=== PATIENT | female | born 1990 | race Caucasian/White ===

== ENCOUNTER 2016-12-11 09:38 | Emergency (ER) | payer MEDICAID, OTHER ==
[2016-12-11 10:17] VITALS: BP 111/83
--- NOTE | 2016-12-11 12:09 | RAD ---
CLINICAL HISTORY: Back pain, hematuria, dysuria COMPARISON: October 23, 2016 TECHNIQUE: Multiple contiguous axial CT scans were obtained of the abdomen and pelvis, without intravenous contrast enhancement. Coronal and sagittal multiplanar reformations are submitted for review. Oral contrast was not administered. FINDINGS: The study is limited by the lack of intravenous contrast. This limits evaluation of the solid organs and vasculature. LUNG BASES: The lung bases are clear. LIVER: The liver is normal in shape, size, contour, and attenuation. BILE DUCTS: There is no intrahepatic or extrahepatic biliary dilatation. GALLBLADDER: The gallbladder is normal, without pericholecystic inflammatory change. PANCREAS: The pancreas is normal, without mass or ductal dilatation. SPLEEN: Normal in size and appearance. UPPER GI TRACT: Evaluation of the gastrointestinal tract is limited by incomplete gastric distention. The upper GI tract is unremarkable. SMALL BOWEL AND MESENTERY: The small bowel is normal in contour, course, and caliber. There is no obstruction or dilatation. COLON: The colon is normal in contour, course, caliber. There is no pericolonic inflammatory change. ADRENALS: Normal bilaterally. KIDNEYS: There are punctate renal calyceal stones bilaterally. There is no hydronephrosis. BLADDER: The bladder is smooth in contour. PELVIC ORGANS: The uterus and adnexa are grossly normal for technique. AORTA: The aorta is normal. IVC: Unremarkable LYMPH NODES: There is no lymphadenopathy by size criteria. ABDOMINAL WALL: There is no evidence for abdominal wall hernia. BONES AND SOFT TISSUES: Unremarkable OTHER: None IMPRESSION: PUNCTATE BILATERAL RENAL CALYCEAL STONES, WITHOUT HYDRONEPHROSIS
--- NOTE | 2016-12-11 14:57 | UC ---
gene Rolon Timothy, scribed for Yuki Tovar DO on 12/11/16 at 1128 . Complaint Female HPI - HPI Summary HPI Summary: Padmini Dyson is a 26 yo female presenting to [facility] with URI including cough, nasal congestion, and sore throat, for the past month, and diarrhea 2 weeks ago , with vomiting 3 days ago. She has had 7/10 left back pain radiating to the groin for a week, and pain in the left hip for 3 days, radiating to the front of her body. She also has seen blood with clots in her urine, with an increase in frequency. She denies any other Sx. She has a Hx of kidney stones, asthma, and cervical cancer. - History Of Current Complaint Chief Complaint: UC Stated Complaint: STOMACH PAIN Time Seen by Provider: 12/11/16 11:23 Hx Obtained From: Patient Hx Last Menstrual Period: 11/18/16 Onset/Duration: Gradual Onset, Lasting Days, Still Present Timing: Constant Severity Initially: Moderate Severity Currently: Moderate Pain Intensity: 7 Pain Scale Used: 0-10 Numeric Radiates to: groin/back Character: Sharp Aggravating Factor(s): Nothing Alleviating Factor(s): Nothing Associated Signs And Symptoms: Positive: Back Pain, Vomiting(# Of Episodes =). Negative: Fever, Vaginal Bleeding/Discharge, Vaginal Discharge, Nausea, Genital Swelling - Allergies/Home Medications Allergies/Adverse Reactions: Allergies Allergy/AdvReac Type Severity Reaction Status Date / Time Cyclobenzaprine Allergy Severe SEVERE Verified 12/11/16 10:07 [From Flexeril] ANXIETY Amoxicillin Allergy Rash Verified 12/11/16 10:07 Sulfa Drugs Allergy Rash Verified 12/11/16 10:07 Home Medications: Home Medications Saline NASAL SPRAY 0.65%* [Sodium Chloride 0.65% Nasal [place]*] 1 spray BOTH NARES Q4H PRN 12/11/16 [History Confirmed 12/11/16] guaiFENesin/CODIEN 100MG-10MG* [Robitussin AC 100Mg-10Mg*] 5 ml PO Q4H PRN 12/11 [History Confirmed 12/11/16] PMH/Surg Hx/FS Hx/Imm Hx - Additional Past Medical History Additional PMH: endometriosis Endocrine History Of: Denies: Diabetes, Thyroid Disease Cardiovascular History Of: Denies: Cardiac Disorders, Hypertension, Pacemaker/ICD, Myocardial Infarction , Congestive Heart Failure, Atrial Fibrillation, Deep Vein Thrombosis, Bleeding Disorders Respiratory History Of: Reports: Asthma Denies: COPD, Bronchitis, Pneumonia, Pulmonary Embolism GI/ History Of: Reports: Kidney Stones Denies: Gastroesophageal Reflux, Ulcer, Gastrointestinal Bleed, Gall Bladder Disease, Diverticulitis, Renal Disease - KIDNEY STONES, Urosepsis Neurological History Of: Denies: TIA, CVA, Dementia, Seizures, Migraine - She states that she has had this, but she is on no medications for this. Psychological History Of: Denies: Anxiety, Depression, Bipolar Disorder, Schizophrenia, Post Traumatic Stress Disorder Cancer History Of: Reports: Cervical Cancer Denies: Lung Cancer, Colorectal Cancer, Breast Cancer, Prostate Cancer Other History Of: Negative For: HIV, Hepatitis B, Hepatitis C, Anticoagulant Therapy - Surgical History Surgical History: None - Family History Known Family History: Positive: Other - NONCONTRIBUTROY Negative: Cardiac Disease, Hypertension, Diabetes - Social History Alcohol Use: Rare Substance Use Type: None Smoking Status (MU): Never Smoked Tobacco Have You Smoked in the Last Year: No - Immunization History Most Recent Influenza Vaccination: none Review of Systems Constitutional: Negative Skin: Negative Eyes: Negative ENT: Sore Throat, Nasal Discharge Respiratory: Cough Cardiovascular: Negative Gastrointestinal: Vomiting, Other - nausea, left flank pain Genitourinary: Hematuria, Frequency Motor: Negative Neurovascular: Negative Neurological: Negative Psychological: Negative All Other Systems Reviewed And Are Negative: Yes Physical Exam Triage Information Reviewed: Yes Appearance: Well-Appearing, No Pain Distress, Well-Nourished, Other: Vital Signs: Initial Vital Signs Temp 99.2 F 12/11/16 10:10 Pulse 96 12/11/16 10:10 Resp 16 12/11/16 10:10 BP 111/83 12/11/16 10:10 Pulse Ox 98 12/11/16 10:10 Vital Signs Reviewed: Yes Eyes: Positive: Conjunctiva Clear. Negative: Conjunctiva Inflamed, Discharge ENT: Positive: Hearing grossly normal, Pharynx normal, Nasal congestion, Nasal drainage, TMs normal, Other: - left maxillary tenderness to palpation. Negative : Tonsillar swelling, Muffled/hoarse voice Dental Exam: Normal Neck: Positive: Supple, Nontender Respiratory: Positive: Chest non-tender, Lungs clear, Normal breath sounds, No respiratory distress, No accessory muscle use Cardiovascular: Positive: RRR, No Murmur Abdomen Description: Positive: No Organomegaly, Soft, CVA Tenderness (L). Negative: Nontender - LLQ and suprapubic, mild in LUQ, Distended, Guarding Bowel Sounds: Positive: Present Musculoskeletal Exam: Normal Neurological: Positive: Alert, Muscle Tone Normal Psychological Exam: Normal Psychological: Positive: Age Appropriate Behavior Skin Exam: Normal Diagnostics - Radiology CT A/P Xray Interpretation: Positive (See Comments) - IMPRESSION: PUNCTATE BILATERAL RENAL CALYCEAL STONES, WITHOUT HYDRONEPHROSIS Radiology Interpretation Completed By: Radiologist Re-Evaluation - Re-Evaluation First Eval Re-Evaluation Time: 12:38 Change: Unchanged Comment: Pt was informed of results of CT. Second Eval Re-Evaluation Time: 13:20 Change: Unchanged Comment: Informed Pt that we are still awaiting consult with Dr. Perez's office Third Eval Re-Evaluation Time: 13:30 Change: Unchanged Comment: Pt was given further instructions for Tx. Complaint Female Dx - Course Course Of Treatment: Padmini Dyson is a 26 yo female presenting to [facility] with left flank and groin pain for the past 3 days, blood in her urine, and a Hx of kidney stones. After review of her UA and CT A/P, she will be discharged with renal calculi. UROLOGY WAS CONTACTED. ONCALL, DR MOSQUERA, WAS IN O.R. SO DR PEREZ KINDLY TOOK A LOOK AT THE CT AND SAID NOT MUCH NEEDS TO BE DONE. STILL AWAITING CALL BACK FROM DR MOSQUERA. I LEFT MY CELL NUMBER WITH OR NURSE. D/W DR MOSQUERA AT [phone]. HE SAID PT CAN CALL TO SET UP AND ELECTIVE APPOINTMENT TO ESTABLISH WITH UROLOGY GIVEN RECURRENT STONES. CONTACTED PT AND RELAYED INFO. UA results: color: pale, yellow. character: clear. odor: none. Bilirubin: negative. urobilinogen: normal. ketones: negative. ascorbic acid: negative. glucose: negative. protein: negative. Blood: +. pH: 5. Nitrite: negative. Leukocytes: normal. Specific gravity: 1.005 - Differential Dx/Diagnosis Provider Diagnoses: Bilateral renal calculi without hydronephrosis or obstruction - Physician Notifications Discussed Patient Care With: [email or web address] - Lennox Marcos - nurse (Urology) - will have MD return call Discharge - Discharge Plan Condition: Stable Disposition: HOME Prescriptions: Ciprofloxacin HCl [Cipro] 500 mg PO BID #14 tab Patient Education Materials: Kidney Stones (ED), Urinary Tract Infection in Women (ED), Sinusitis (ED) Referrals: Non Staff,Doctor [Primary Care Provider] - 2 Days Additional Instructions: TRY USING THE NETTI POT IN THE MORNINGS DISCUSSED. YOU MUST ALWAYS USE CLEAN WATER. REMEMBER, POSTURE IS AN IMPORTANT FACTOR IN SINUS DRAINAGE. MOVE YOUR NECK, BREATHE. CIPROFLOXACIN: You have been given a new antibacterial agent, ciprofloxacin (Cipro). This medicine is not related to the penicillins, sulfas, cephalosporins, or tetracyclines. It is often given to patients who are allergic to these drugs. It has been chosen for you either because other drugs are not appropriate, or because of the nature of your problem. Cipro should not be taken with antacids, as these can decrease its effectiveness. It can be taken without regard to meals. CIPRO SHOULD NOT BE TAKEN BY CHILDREN, NURSING WOMEN, OR WOMEN. Although Cipro is usually well-tolerated, common side effects can include nausea and diarrhea. Contact your doctor if you experience any unusual symptoms while on this medication, such as joint pain or swelling, shortness of breath, wheezing, faintness, or hives. ANY TIME YOU TAKE AN ANTIBIOTIC, IT IS IMPORTANT TO REPLENISH THE BODY'S BALANCE OF "GOOD" BACTERIA BY EATING HIGH QUALITY CULTURED FOOD SUCH YOGURT, SAURKRAUT OR CELSO CHI AND/OR TAKING A PROBIOTIC SUPPLEMENT. WE HAVE A CALL OUT TO UROLOGY TO DISCUSS YOUR CASE. YOU WOULD LIKE TO LEAVE NOW AND HAVE US CALL YOU AND UP DATE YOU WITH REGARD TO THE PLAN. PLEASE BE AVAILABLE BY PHONE FOR US TO REACH YOU. Follow up with your primary care physician within 2 days regarding your visit to urgent care. Return to urgent care with any new or recurring symptoms. The documentation as recorded by the gene marina Timothy accurately reflects the service I personally performed and the decisions made by , Yuki Tovar DO.
== END 2016-12-11 13:50 | disposition home or self-care (01) ==
LOC: UCEAST 09:38
DX: N20.0 Calculus of kidney (principal); Z87.442 Personal history of urinary calculi; R11.10 Vomiting, unspecified; Z32.02 Encounter for pregnancy test, result negative; Z88.0 Allergy status to penicillin; Z88.2 Allergy status to sulfonamides; Z88.8 Allergy status to other drugs, medicaments and biological substances
CPT/HCPCS: 74176; 81002; 81025; 99212; G0463

== ENCOUNTER 2017-04-05 09:51 | Emergency (ER) | payer OTHER ==
[2017-04-05 10:10] VITALS: BP 132/91
--- NOTE | 2017-04-05 11:02 | UC ---
Lower Extremity/Ankle HPI - HPI Summary HPI Summary: complaint of right ankle pain missed a step turned right ankle outward and fell forward and hit the top of her foot an a dresser unable to ambulate after injury constant aching pain is in lateral side of ankle, top of foot and radiates into her front of lower leg used ice and elevated with some relief hx of bone chip in her ankle and many sprained ankles in the past hasn't taken taken any medication for pain - History of Current Complaint Chief Complaint: UCLowerExtremity Stated Complaint: ANKLE INJURY Time Seen by Provider: 04/05/17 10:56 Hx Obtained From: Patient Hx Last Menstrual Period: March 18-2016, spotted - Allergies/Home Medications Allergies/Adverse Reactions: Allergies Allergy/AdvReac Type Severity Reaction Status Date / Time Cyclobenzaprine Allergy Severe SEVERE Verified 12/11/16 10:07 [From Flexeril] ANXIETY Amoxicillin Allergy Rash Verified 12/11/16 10:07 Sulfa Drugs Allergy Rash Verified 12/11/16 10:07 PMH/Surg Hx/FS Hx/Imm Hx Previously Healthy: Yes Endocrine History Of: Denies: Diabetes, Thyroid Disease Cardiovascular History Of: Denies: Cardiac Disorders, Hypertension, Pacemaker/ICD, Myocardial Infarction , Congestive Heart Failure, Atrial Fibrillation, Deep Vein Thrombosis, Bleeding Disorders Respiratory History Of: Reports: Asthma Denies: COPD, Bronchitis, Pneumonia, Pulmonary Embolism GI/ History Of: Reports: Kidney Stones Denies: Gastroesophageal Reflux, Ulcer, Gastrointestinal Bleed, Gall Bladder Disease, Diverticulitis, Renal Disease - KIDNEY STONES, Urosepsis Neurological History Of: Denies: TIA, CVA, Dementia, Seizures, Migraine - She states that she has had this, but she is on no medications for this. Psychological History Of: Denies: Anxiety, Depression, Bipolar Disorder, Schizophrenia, Post Traumatic Stress Disorder Cancer History Of: Reports: Cervical Cancer Denies: Lung Cancer, Colorectal Cancer, Breast Cancer, Prostate Cancer Other History Of: Negative For: HIV, Hepatitis B, Hepatitis C, Anticoagulant Therapy - Surgical History Surgical History: None - Family History Known Family History: Positive: Other - NONCONTRIBUTROY Negative: Cardiac Disease, Hypertension, Diabetes - Social History Occupation: Employed Full-time Lives: With Family Alcohol Use: Rare Substance Use Type: None Smoking Status (MU): Never Smoked Tobacco Have You Smoked in the Last Year: No - Immunization History Most Recent Influenza Vaccination: none Review of Systems Constitutional: Negative Skin: Negative Eyes: Negative ENT: Negative Respiratory: Negative Cardiovascular: Negative Gastrointestinal: Negative Genitourinary: Negative Motor: Negative Neurovascular: Negative Musculoskeletal: Other: - roght foot and ankle pain Neurological: Negative Psychological: Negative All Other Systems Reviewed And Are Negative: Yes Physical Exam Triage Information Reviewed: Yes Appearance: No Pain Distress, Well-Nourished Vital Signs: Initial Vital Signs Temp 97.0 F 04/05/17 10:00 Pulse 84 04/05/17 10:00 Resp 16 04/05/17 10:00 BP 132/91 04/05/17 10:00 Pulse Ox 98 04/05/17 10:00 Vital Signs Reviewed: Yes Eyes: Positive: Conjunctiva Clear ENT: Positive: Pharynx normal, TMs normal. Negative: Nasal congestion Neck: Positive: No Lymphadenopathy Respiratory: Positive: Lungs clear, Normal breath sounds, No respiratory distress, No accessory muscle use Cardiovascular: Positive: RRR, No Murmur, Pulses Normal Abdomen Description: Positive: Nontender, Soft Bowel Sounds: Positive: Present Musculoskeletal: Positive: Other: - RLE:No bony deformities, tenderness and edema throughtout lateral side of ankle and top of 3rd 4th 5th metatarsals i Full ROM dorsi/plantar flexion, inversion & eversion. Bement test negative. Neurological: Positive: Alert Psychological Exam: Normal Skin Exam: Normal Lower Extremity Course/Dx - Course Course Of Treatment: exam completed. will x-ray d/t hx of "bone chip" in ankle and trauma - Differential Dx/Diagnosis Differential Diagnosis/HQI/PQRI: Fracture (Closed), Sprain, Strain Provider Diagnoses: right ankle sprain Discharge - Discharge Plan Condition: Stable Disposition: HOME Patient Education Materials: Ankle Sprain (ED) Referrals: Non Staff,Doctor [Primary Care Provider] - [facility] [place] [facility] [Outside] Additional Instructions: ANKLE SPRAIN What is an Ankle Sprain? An ankle sprain is a partial or complete tearing of the ligaments that support the ankle joint. Most ankle sprains affect the ligaments on the outside of the joint. X-rays will not show ligament injury and are often not needed for simple sprains. Symptoms Might Include: Pain in your ankle, foot, or lower leg area Bruising and/or Swelling Possible deformity (bones not lined up as usual) Treatment Recommendations: You should prop your foot up above the level of your heart for the first 24 to 48 hours. This helps cut down on the pain and swelling. You should put an ice pack wrapped in a towel on the injured area for 15 to 20 minutes every 2 to 3 hours when you are awake for the first 2 to 3 days. A compression dressing, like a Velcro splint or Sid wrap, will help give support and cut down on swelling. If the wrap is too tight, it may cause numbness, tingling, paleness, or a cool feeling. If this happens, the wrap should be taken off and put back on looser. Crutches should be used if there is any pain when you put your weight on your foot. You usually only need to use crutches for the first few days. If you have a more severe sprain you might need to use them longer. As the pain gets better , try to walk without the crutches a little at a time until you can walk without any pain. When your sprain starts to get better you should start exercising. Sit with your ankle off the ground and move it around in all directions 4 to 6 times a day as long as it is not painful. When you can walk without crutches, slowly start to increase your activity by walking short distances. Remember not to overdo it. It may take 3 to 4 weeks to completely get better, even for a mild sprain. It can take much longer for more severe sprains. More severe sprains will need a splint. You will need to see a healthcare provider again in the next 2 to 3 days. [id number] anti-inflammatory medicine like ibuprofen (Motrin, Advil) or naproxen (Aleve) may help with both the pain and the swelling in your joints. You should not take these medicines if you have a history of bleeding in your stomach. The healthcare provider may give you a prescription for a narcotic pain medicine to ease the pain. Do not drive or do things that need your full attention after taking this medication. Call Your Doctor or Return Here IF: You have a lot more pain or swelling. If the pain is not getting better in 3 days. If you start to have numbness or tingling in your foot or ankle. If the injured area starts to feel cool to the touch or is pale or bluish in color. If you start to have any other symptoms that worry you. Your blood pressure is pre-hypertensive reading. Please contact your primary care provider within 1 day -4 weeks for further evaluation
--- NOTE | 2017-04-05 11:38 | RAD ---
Indication: Posterior RIGHT ankle pain after injury with fall. Comparison: June 02, 2016 MRI and February 07, 2016 radiographs. Technique: AP, mortise, and lateral views RIGHT ankle. Report: Congruent ankle mortise. Negative for fracture or osteochondral lesion. Unremarkable soft tissue contours. IMPRESSION: Negative exam.
== END 2017-04-05 12:03 | disposition home or self-care (01) ==
LOC: UCEAST 09:51
DX: S93.401A Sprain of unspecified ligament of right ankle, initial encounter (principal); X50.1XXA Overexertion from prolonged static or awkward postures, initial encounter; Y93.9 Activity, unspecified; Y99.9 Unspecified external cause status
CPT/HCPCS: 99213; G0463

== ENCOUNTER 2017-04-10 14:46 | Emergency (ER) | payer OTHER ==
[2017-04-10 15:37] VITALS: BP 138/79
--- NOTE | 2017-04-10 16:36 | UC ---
Lower Extremity/Ankle HPI - HPI Summary HPI Summary: Injured ankle a few days ago--had been none weight bearing with crutches-today tried to walk without crutches--increase pain right ankle heard and felt a tearing fell and landed on right hip - History of Current Complaint Chief Complaint: UCLowerExtremity Stated Complaint: RECHECK ANKLE INJURY Time Seen by Provider: 04/10/17 16:28 Hx Obtained From: Patient Hx Last Menstrual Period: 03/19/17 ?: No Onset/Duration: Lasting Days, Still Present, Worse Since - she tried to WB today and fell causing increased and return of pain Severity Initially: Moderate Severity Currently: Severe Pain Intensity: 9 - crying with palpation Pain Scale Used: 0-10 Numeric Aggravating Factor(s): Standing Alleviating Factor(s): Rest, Elevation, Ice, OTC Meds Able to Bear Weight: No - Allergies/Home Medications Allergies/Adverse Reactions: Allergies Allergy/AdvReac Type Severity Reaction Status Date / Time Cyclobenzaprine Allergy Severe SEVERE Verified 12/11/16 10:07 [From Flexeril] ANXIETY Amoxicillin Allergy Rash Verified 12/11/16 10:07 Sulfa Drugs Allergy Rash Verified 12/11/16 10:07 PMH/Surg Hx/FS Hx/Imm Hx Previously Healthy: Yes Other History Of: Negative For: HIV, Hepatitis B, Hepatitis C, Anticoagulant Therapy - Surgical History Surgical History: None - Family History Known Family History: Positive: Other Negative: Cardiac Disease, Hypertension, Diabetes Family History: no cardio vascular issues reported in family lineage - Social History Occupation: Employed Full-time Lives: With Family Alcohol Use: Rare Substance Use Type: None Smoking Status (MU): Never Smoked Tobacco Have You Smoked in the Last Year: No - Immunization History Most Recent Influenza Vaccination: none Review of Systems Constitutional: Negative Skin: Negative Eyes: Negative ENT: Negative Respiratory: Negative Cardiovascular: Negative Gastrointestinal: Negative Genitourinary: Negative Motor: Negative Neurovascular: Negative Musculoskeletal: Arthralgia - right hip and ankle, Myalgia - right hip Neurological: Negative Psychological: Negative All Other Systems Reviewed And Are Negative: Yes Physical Exam Triage Information Reviewed: Yes Appearance: Well-Appearing, Well-Nourished, Pain Distress Vital Signs: Initial Vital Signs Temp 97.8 F 04/10/17 15:32 Pulse 88 04/10/17 15:32 Resp 16 04/10/17 15:32 BP 138/79 04/10/17 15:32 Pulse Ox 99 04/10/17 15:32 Vital Signs Reviewed: Yes Eye Exam: Normal Eyes: Positive: Conjunctiva Clear ENT Exam: Normal ENT: Positive: Normal ENT inspection, Hearing grossly normal. Negative: Nasal congestion, Nasal drainage, Tonsillar swelling, Tonsillar exudate, Trismus, Muffled/hoarse voice Dental Exam: Normal Neck exam: Normal Neck: Positive: Supple, Nontender Respiratory Exam: Normal Respiratory: Positive: Chest non-tender, No respiratory distress, No accessory muscle use Cardiovascular Exam: Normal Cardiovascular: Positive: RRR, Pulses Normal, Brisk Capillary Refill Musculoskeletal Exam: Other Musculoskeletal: Positive: No Edema, Strength Limited @ - right ankle and hip, ROM Limited @ Neurological Exam: Normal Neurological: Positive: Alert, Muscle Tone Normal Psychological Exam: Normal Skin Exam: Normal Diagnostics - Radiology No standard instances Xray Interpretation: No Acute Changes Radiology Interpretation Completed By: Radiologist Lower Extremity Course/Dx - Course Course Of Treatment: crutches, gal, gel, pain med, rice, off work until cleared by ortho, follow with ortho 2 days - Differential Dx/Diagnosis Differential Diagnosis/HQI/PQRI: Contusion, Fracture (Closed), Sprain, Strain Provider Diagnoses: R hip contusion, right ankle sprain Discharge - Discharge Plan Condition: Stable Disposition: HOME Prescriptions: Hydrocodone-Acetaminophen [Hydrocodone/Acetaminophen 5-325 mg] 1 tab PO Q6H PRN #15 tab MDD 4 PRN Reason: Pain Patient Education Materials: Ankle Sprain (ED), Crutch Instructions (ED), Ankle Stirrup Splint (ED), RICE Therapy (ED), Hip Contusion (ED) Forms: *Work Release Referrals: Zeferino Espinoza MD [Medical Doctor] - 2 Days No Primary Care Phys,NOPCP [Primary Care Provider] -
--- NOTE | 2017-04-10 17:09 | RAD ---
INDICATION: Right ankle injury COMPARISON: April 05, 2017 TECHNIQUE: AP, lateral, and oblique views were obtained. FINDINGS: The bony structures, joint spaces, and soft tissues are normal for age. IMPRESSION: NEGATIVE EXAMINATION, UNCHANGED.
--- NOTE | 2017-04-10 17:10 | RAD ---
INDICATION: Right hip pain COMPARISON: None TECHNIQUE: An AP view of the pelvis and AP views of the hip in neutral and abducted position were obtained FINDINGS: Bones: There are no acute bony findings. Joint spaces: The hips articulate normally. The joint spaces are preserved. SI joints/symphysis: The SI joints and symphysis are intact. Other: None IMPRESSION: NEGATIVE EXAMINATION.
[2017-04-10] MEDS ORDERED: HYDROcodone/ACETAMIN 5-325 MG* 1 TAB PO ONE (17:24)
== END 2017-04-10 17:57 | disposition home or self-care (01) ==
LOC: UCEAST 14:46
DX: S70.01XA Contusion of right hip, initial encounter (principal); S93.401A Sprain of unspecified ligament of right ankle, initial encounter; W18.30XA Fall on same level, unspecified, initial encounter
CPT/HCPCS: 99212; G0463

== ENCOUNTER 2017-07-01 11:54 | Emergency (ER) | payer OTHER ==
--- NOTE | 2017-07-01 13:26 | UC ---
Respiratory Complaint HPI - HPI Summary HPI Summary: 2 WEEKS OF SINUS CONGESTION, EARS CLOGGED, PRODUCTIVE COUGH AND RIGHT NECK SWELLING. BLOODY NOSE IN THE MORNINGS PAST 2 DAYS. HAS SUBJECTIVE FEVER. - History of Current Complaint Chief Complaint: UCRespiratory Stated Complaint: SINUS COMPLAINT Time Seen by Provider: 07/01/17 13:24 Hx Obtained From: Patient Hx Last Menstrual Period: 06/03/17 Onset/Duration: Gradual Onset, Lasting Weeks, Still Present Timing: Constant Severity Initially: Moderate Severity Currently: Moderate Pain Intensity: 7 Pain Scale Used: 0-10 Numeric Character: Cough: Productive Aggravating Factors: Nothing Alleviating Factors: Nothing Associated Signs And Symptoms: Positive: Fever, URI, Nasal Congestion, Hoarseness, Sinus Discomfort. Negative: Dyspnea, Chills, Pleuritic Chest Pain, Wheezing, Hemoptysis, Dizziness, Calf Pain, Calf Swelling - Allergies/Home Medications Allergies/Adverse Reactions: Allergies Allergy/AdvReac Type Severity Reaction Status Date / Time Cyclobenzaprine Allergy Severe SEVERE Verified 07/01/17 12:15 [From Flexeril] ANXIETY Amoxicillin Allergy Rash Verified 07/01/17 12:15 Sulfa Drugs Allergy Rash Verified 07/01/17 12:15 PMH/Surg Hx/FS Hx/Imm Hx Respiratory History: Asthma Other History Of: Negative For: HIV, Hepatitis B, Hepatitis C, Anticoagulant Therapy - Surgical History Surgical History: None - Family History Known Family History: Positive: Other Negative: Cardiac Disease, Hypertension, Diabetes Family History: no cardio vascular issues reported in family lineage - Social History Alcohol Use: Rare Substance Use Type: None Smoking Status (MU): Never Smoked Tobacco Have You Smoked in the Last Year: No - Immunization History Most Recent Influenza Vaccination: none Review of Systems Constitutional: Fever ENT: Sore Throat, Ear Ache, Nasal Discharge Respiratory: Cough Cardiovascular: Negative Gastrointestinal: Negative All Other Systems Reviewed And Are Negative: Yes Physical Exam Triage Information Reviewed: Yes Appearance: Well-Appearing, No Pain Distress, Well-Nourished Vital Signs: Initial Vital Signs Temp 97.9 F 07/01/17 12:11 Pulse 67 07/01/17 12:11 Resp 12 07/01/17 12:11 BP 121/82 07/01/17 12:11 Pulse Ox 100 07/01/17 12:11 Vital Signs Reviewed: Yes Eyes: Positive: Conjunctiva Clear ENT: Positive: Hearing grossly normal, Pharynx normal, TMs normal Neck: Positive: Supple, No Lymphadenopathy, Tenderness @ - OVER BELLY OF RIGHT SCM MUSCLE, Other: - RIGHT NECK FULLNESS Respiratory Exam: Normal Cardiovascular Exam: Normal Abdomen Description: Positive: Soft Musculoskeletal: Positive: No Edema Neurological: Positive: Alert Psychological: Positive: Age Appropriate Behavior Skin: Negative: rashes UC Diagnostic Evaluation - Laboratory O2 Sat by Pulse Oximetry: 100 - Radiology Xray Interpretation: No Acute Changes - SOFT TISSUE NECK Radiology Interpretation Completed By: Radiologist Respiratory Course/Dx - Differential Dx/Diagnosis Provider Diagnoses: ACUTE RHINOSINUSITIS Discharge - Discharge Plan Condition: Stable Disposition: HOME Prescriptions: Doxycycline (Monohydrate) [Doxycycline Monohydrate] 1 cap PO BID #20 cap Patient Education Materials: Rhinosinusitis (ED) Referrals: No Primary Care Phys,NOPCP [Primary Care Provider] - Additional Instructions: SOFT TISSUE XRAY OF THE NECK WAS NORMAL TODAY. IF YOUR NECK SWELLING DOES NOT IMPROVE WOULD RECOMMEND FOLLOW-UP WITH A PCP FOR FURTHER EVALUATION. GO TO THE ER WITHOUT FAIL IF THERE IS ANY AIRWAY INVOLVEMENT, FEVER, INCREASE IN SWELLING OR OTHER CONCERNING SYMPTOMS. CALL THE NUMBER BELOW FOR ASSISTANCE IN ESTABLISHING WITH A PCP An additional resource available to assist in finding the appropriate physician for your health care needs is the [facility] ([facility]). You may contact them by calling [phone].
--- NOTE | 2017-07-01 14:11 | RAD ---
INDICATION: Right neck fullness. Pain. COMPARISON: None TECHNIQUE: 2 view soft tissue imaging of neck was performed FINDINGS: There are no acute bony findings. The prevertebral soft tissues are normal. The airways widely patent. IMPRESSION: NORMAL SOFT TISSUE NECK
[2017-07-01 15:09] VITALS: BP 124/66
== END 2017-07-01 14:35 | disposition home or self-care (01) ==
LOC: UCEAST 11:54
DX: J01.90 Acute sinusitis, unspecified (principal); Z88.3 Allergy status to other anti-infective agents; Z88.2 Allergy status to sulfonamides; J45.909 Unspecified asthma, uncomplicated
CPT/HCPCS: 70360; 99212; G0463

== ENCOUNTER 2017-10-22 09:55 | Emergency (ER) | payer BC, OTHER ==
[2017-10-22] MEDS ORDERED: Ketorolac INJ* 60 MG/2 ML VIAL IM ONE (12:46)
--- NOTE | 2017-10-22 13:08 | UC ---
Headache HPI - HPI Summary HPI Summary: 3-4 weeks of headache sore throat fatigue been sleeping 16 hours daily, feels sweaty has had fevers-low energy low appetite - History Of Current Complaint Chief Complaint: UCGeneralIllness Stated Complaint: HEADACHE, BODYACHE Time Seen by Provider: 10/22/17 12:29 Hx Obtained From: Patient Hx Last Menstrual Period: 10/15/17 ?: No Onset/Duration: Gradual Onset, Lasting Weeks, Still Present Onset Of Symptoms: Gradual Timing: Constant Character: Throbbing Location of Headache: Frontal, Occipital Aggravating Factor(s): Nothing Allevating Factor(s): Nothing - Allergies/Home Medications Allergies/Adverse Reactions: Allergies Allergy/AdvReac Type Severity Reaction Status Date / Time Cyclobenzaprine Allergy Severe SEVERE Verified 10/22/17 10:23 [From Flexeril] ANXIETY Amoxicillin Allergy Rash Verified 10/22/17 10:23 Sulfa Drugs Allergy Rash Verified 10/22/17 10:23 PMH/Surg Hx/FS Hx/Imm Hx Previously Healthy: Yes Other History Of: Negative For: HIV, Hepatitis B, Hepatitis C, Anticoagulant Therapy - Surgical History Surgical History: None - Family History Known Family History: Positive: Other Negative: Cardiac Disease, Hypertension, Diabetes Family History: no cardio vascular issues reported in family lineage - Social History Occupation: Employed Full-time - substitute [employer] Lives: With Family Alcohol Use: Rare Substance Use Type: None Smoking Status (MU): Never Smoked Tobacco Have You Smoked in the Last Year: No - Immunization History Most Recent Influenza Vaccination: NOT UTD Review of Systems Constitutional: Fever, Chills, Fatigue Skin: Negative Eyes: Negative ENT: Sore Throat Respiratory: Negative Cardiovascular: Negative Gastrointestinal: Negative Genitourinary: Negative Motor: Negative Neurovascular: Negative Musculoskeletal: Negative Neurological: Negative Psychological: Negative Is Patient Immunocompromised?: No All Other Systems Reviewed And Are Negative: Yes Physical Exam Triage Information Reviewed: Yes Appearance: Well-Appearing, No Pain Distress, Well-Nourished Vital Signs: Initial Vital Signs Temp 99.2 F 10/22/17 10:15 Pulse 96 10/22/17 10:15 Resp 18 10/22/17 10:15 BP 139/90 10/22/17 10:15 Pulse Ox 100 10/22/17 10:15 Vital Signs Reviewed: Yes Eye Exam: Normal Eyes: Positive: Conjunctiva Clear ENT Exam: Normal ENT: Positive: Normal ENT inspection, Hearing grossly normal, Pharynx normal, TMs normal, Uvula midline. Negative: Nasal congestion, Nasal drainage, Tonsillar swelling, Tonsillar exudate, Trismus, Muffled voice, Hoarse voice, Sinus tenderness Dental Exam: Normal Neck exam: Normal Neck: Positive: Supple, Nontender, No Lymphadenopathy Respiratory Exam: Normal Respiratory: Positive: Chest non-tender, Lungs clear, Normal breath sounds, No respiratory distress, No accessory muscle use Cardiovascular Exam: Normal Cardiovascular: Positive: RRR, No Murmur, Pulses Normal, Brisk Capillary Refill Abdominal Exam: Normal Abdomen Description: Positive: Nontender, No Organomegaly, Soft. Negative: CVA Tenderness (R), CVA Tenderness (L) Bowel Sounds: Positive: Present Musculoskeletal Exam: Normal Musculoskeletal: Positive: Strength Intact, ROM Intact Neurological Exam: Normal Neurological: Positive: Alert, Muscle Tone Normal Psychological Exam: Normal Skin Exam: Normal Diagnostics - Radiology No standard instances Xray Interpretation: No Acute Changes Radiology Interpretation Completed By: Radiologist Re-Evaluation - Re-Evaluation First Eval Change: Improved - headache has improved Headache Course/Dx - Course Course Of Treatment: rest increase fluids, lab stuidies follow with pcp this week - Differential Dx/Diagnosis Provider Diagnoses: headache fatigue, viral illness Discharge - Discharge Plan Condition: Stable Disposition: HOME Patient Education Materials: Viral Syndrome (ED) Referrals: No Primary Care Phys,NOPCP [Primary Care Provider] - Additional Instructions: Follow this week at [facility]
--- NOTE | 2017-10-22 13:16 | RAD ---
INDICATION: Headache 4-6 weeks. COMPARISON: Comparison is made with a prior MRI of the brain from July 15, 2014. TECHNIQUE: Contiguous axial sections of the brain were obtained from the skull base to the vertex without contrast. FINDINGS: The ventricles, cisterns and sulci are within normal limits. No significant focal abnormality or mass effect is seen. There is no evidence for hemorrhage. No significant focal osseous abnormality is seen. There is opacification of a couple ethmoid air cells on the left side which appears similar to the prior MRI study. The visualized portion of the paranasal sinuses and mastoid air cells otherwise appear clear. IMPRESSION: NO EVIDENCE FOR ACUTE INTRACRANIAL ABNORMALITY.
[2017-10-22 13:21] VITALS: BP 125/83
[2017-10-22 16:10] LABS: EBV Response YES
[2017-10-22 16:25] LABS: Hematocrit 42 % (35-47); Mean Corpuscular HGB Conc 34 g/dl (31-36); Mean Corpuscular Hemoglobin 30 pg (27-31); Mean Corpuscular Volume 89 fL (80-97); Mean Platelet Volume 9 um3 (7.4-10.4); Red Blood Count 4.69 10^6/ul (4.0-5.4); Red Cell Distribution Width 13 % (10.5-15); White Blood Count 5.4 10^3/ul (3.5-10.8)
[2017-10-22 17:12] LABS: Mono Internal Control QC Line Present
[2017-10-24 10:59] LABS: EBV Capsid Ag IgG Ab Positive (Negative); EBV Capsid Ag IgM Ab Negative (Negative)
== END 2017-10-22 13:45 | disposition home or self-care (01) ==
LOC: UCEAST 09:55
DX: R51 Headache (principal); R53.83 Other fatigue; B34.9 Viral infection, unspecified; Z88.8 Allergy status to other drugs, medicaments and biological substances; Z88.1 Allergy status to other antibiotic agents; Z88.2 Allergy status to sulfonamides
CPT/HCPCS: 36415; 70450; 85025; 86308; 86664; 86665; 96372; 99212; G0463; J1885

== ENCOUNTER 2017-10-22 21:30 | Emergency (ER) | payer BC ==
[2017-10-23] MEDS ORDERED: PROCHLORPERAZINE INJ 5 MG/ML 2 ML VIAL IV ONE (01:30)
[2017-10-23] MEDS ORDERED: diPHENhydraMINE IV* 50 MG/ML 1 ml VIAL (BENADRYL) IV ONE (01:30)
[2017-10-23] MEDS ORDERED: Methocarbamol TAB* 500 MG PO ONE (01:31)
[2017-10-23] MEDS ORDERED: Ketorolac INJ* 30 MG/ML 1 ML VIAL IV PUSH ONE (01:31)
[2017-10-23] MEDS ORDERED: NS 0.9% 1000 ML* 1,000 ML IV ONE (01:32)
--- NOTE | 2017-10-23 02:34 | ED ---
Headache - HPI Summary HPI Summary: 27F presents with intermittent headaches for 2 months. She states in the last two weeks they have become more constant. She states she has been told that she has a viral illness. She states pain is on right side of head and starts behind the eyes and radiates down her entire back. She states pain is sharp in nature. She states tyenlol and ibuprofen have not worked for pain. She denies any history of migraines or family history of such. She admits to photo and phonophobia. She states last week she had a cough, fever, and sinus congestion but that has resolved. She denies any fever or neck stiffness in the past week. She denies any family history of aneurysms. She was seen at urgent care today and had normal blood work and CT brain. She denies any injury to her back. She denies any loss of bowel or bladder or saddle paresthesia. - History Of Current Complaint Chief Complaint: EDHeadache Stated Complaint: HEADACHE/BACK PAIN Time Seen by Provider: 10/23/17 01:16 Hx Last Menstrual Period: 10/15/17 - Allergies/Home Medications Allergies/Adverse Reactions: Allergies Allergy/AdvReac Type Severity Reaction Status Date / Time Cyclobenzaprine Allergy Severe SEVERE Verified 10/22/17 21:36 [From Flexeril] ANXIETY Amoxicillin Allergy Rash Verified 10/22/17 21:36 Sulfa Drugs Allergy Rash Verified 10/22/17 21:36 PMH/Surg Hx/FS Hx/Imm Hx Endocrine/Hematology History: Denies: Hx Anticoagulant Therapy, Hx Diabetes, Hx Thyroid Disease Cardiovascular History: Denies: Hx Congestive Heart Failure, Hx Deep Vein Thrombosis, Hx Hypertension , Hx Myocardial Infarction, Hx Pacemaker/ICD Respiratory History: Reports: Hx Asthma Denies: Hx Chronic Obstructive Pulmonary Disease (COPD), Hx Lung Cancer, Hx Pneumonia, Hx Pulmonary Embolism GI History: Denies: Hx Gall Bladder Disease, Hx Gastrointestinal Bleed, Hx Ulcer, Hx Urosepsis History: Reports: Hx Kidney Stones Denies: Hx Renal Disease - KIDNEY STONES Sensory History: Denies: Hx Hearing Aid Neurological History: Denies: Hx Dementia, Hx Migraine - She states that she has had this, but she is on no medications for this., Hx Seizures, Hx Transient Ischemic Attacks (TIA) Psychiatric History: Denies: Hx Anxiety, Hx Depression, Hx Panic Disorder, Hx Schizophrenia, Hx Bipolar Disorder Infectious Disease History: No Infectious Disease History: Denies: Hx Clostridium Difficile, Hx Hepatitis, Hx Human Immunodeficiency Virus (HIV), Hx of Known/Suspected MRSA, Hx Shingles, Hx Tuberculosis, Hx Known/ Suspected VRE, Hx Known/Suspected VRSA, History Other Infectious Disease, Traveled Outside the [place] in Last 30 Days - Family History Known Family History: Positive: Other Negative: Cardiac Disease, Hypertension, Diabetes Family History: no cardio vascular issues reported in family lineage - Social History Alcohol Use: Rare Substance Use Type: Reports: None Smoking Status (MU): Never Smoked Tobacco Have You Smoked in the Last Year: No Review of Systems Negative: Fever Negative: Chest Pain Negative: Shortness Of Breath Positive: Headache All Other Systems Reviewed And Are Negative: Yes Physical Exam Triage Information Reviewed: Yes Vital Signs On Initial Exam: Initial Vitals Temp Pulse Resp BP Pulse Ox 98.0 F 94 16 139/91 99 10/22/17 21:33 10/22/17 21:33 10/22/17 21:33 10/22/17 21:33 10/22/17 21:33 Vital Signs Reviewed: Yes Appearance: Positive: Well-Appearing Skin: Positive: Warm, Dry Head/Face: Positive: Normal Head/Face Inspection Eyes: Positive: Normal, EOMI, KIT, Conjunctiva Clear ENT: Positive: Normal ENT inspection, Pharynx normal, TMs normal Respiratory/Lung Sounds: Positive: Clear to Auscultation, Breath Sounds Present Cardiovascular: Positive: Normal, RRR Abdomen Description: Positive: Nontender, Soft Bowel Sounds: Positive: Present Musculoskeletal: Positive: Strength/ROM Intact - neck and back, Other - neg SLR , good pulses, tenderness over paraspinal muscles Neurological: Positive: Sensory/Motor Intact, Alert, Oriented to Person Place, Time, CN Intact II-III - Tanner Coma Scale Best Eye Response: 4 - Spontaneous Best Motor Response: 6 - Obeys Commands Best Verbal Response: 5 - Oriented Coma Scale Total: 15 Diagnostics - Vital Signs Vital Signs Temp Pulse Resp BP Pulse Ox 10/23/17 01:14 75 97 10/22/17 23:29 98.9 F 87 18 136/98 96 10/22/17 21:33 98.0 F 94 16 139/91 99 - Laboratory Lab Statement: Any lab studies that have been ordered have been reviewed, and results considered in the medical decision making process. Re-Evaluation - Re-Evaluation First Eval Re-Evaluation Time: 02:58 Change: Improved Comment: headache has resolved after migraine cocktail Headache Course/Dx - Course Course Of Treatment: 27F presents with intermittent headaches for 2 months. She states in the last two weeks they have become more constant. She states she has been told that she has a viral illness. She states pain is on right side of head and starts behind the eyes and radiates down her entire back. She states pain is sharp in nature. She states tyenlol and ibuprofen have not worked for pain. She denies any history of migraines or family history of such. She admits to photo and phonophobia. She states last week she had a cough, fever, and sinus congestion but that has resolved. She denies any fever or neck stiffness in the past week. She denies any family history of aneurysms. She was seen at urgent care today and had normal blood work and CT brain. She denies any injury to her back. She denies any loss of bowel or bladder or saddle paresthesia. on exam normal neuro exam. tenderness across paraspinal muscles down back. believe could be migraine like headaches. will treat back pain with musclar relaxer. gave neuro referral. will discharge with robaxin. patient understand and agrees with plan. - Diagnoses Differential Diagnosis/HQI/PQRI: Migraine, Tension Headache, Viral Syndrome Provider Diagnoses: Headache, Back pain Discharge - Discharge Plan Condition: Good Disposition: HOME Prescriptions: Methocarbamol TAB* [Robaxin 500 MG TAB*] 500 mg PO TID PRN #15 tab PRN Reason: Pain Patient Education Materials: Acute Headache (ED) Referrals: No Primary Care Phys,NOPCP [Primary Care Provider] - Kia Flores MD [Medical Doctor] - Additional Instructions: Take muscle relaxers three times a day Use ibuprofen or Tylenol for pain every 6 hours ice/heat area, move as much as possible Follow up with primary within 5 days follow up with neurology Return to ED if develop any new or worsening symptoms
[2017-10-23 03:07] VITALS: BP 129/79
== END 2017-10-23 03:06 | disposition home or self-care (01) ==
LOC: ED 21:30
DX: R51 Headache (principal); M54.9 Dorsalgia, unspecified; Z88.0 Allergy status to penicillin; Z88.2 Allergy status to sulfonamides
CPT/HCPCS: 86618; 96360; 96374; 96375; 96376; 99282; A9270-GY; J0780; J1200; J1885